=== PATIENT | female | born 1950 | race Caucasian/White ===

== ENCOUNTER → 2018-08-29 12:12 | Outpatient (CLI) | payer MEDICARE, MEDICAID, SELFPAY ==
--- NOTE | 2018-08-29 | DI.MG.S_ITS ---
BILATERAL DIGITAL SCREENING MAMMOGRAM 3D/2D WITH CAD: 08/29/2018 CLINICAL: Routine screening. Comparison is made to exams dated: 07/18/2017 mammogram, 03/25/2016 mammogram, and 01/31/2014 mammogram - [facility]. There are scattered fibroglandular elements in both breasts. Current study was also evaluated with a Computer Aided Detection (CAD) system. No significant masses, calcifications, or other findings are seen in either breast. There has been no significant interval change. IMPRESSION: NEGATIVE There is no mammographic evidence of malignancy. A 1 year screening mammogram is recommended. This exam was interpreted at Station ID: [id number]. NOTE: For mammograms, a report in lay terms will be sent to the patient. Approximately 15% of breast malignancies will not be visualized mammographically. In the management of a palpable breast mass, a negative mammogram must not discourage biopsy of a clinically suspicious lesion. Electronically Signed By: Essie carrillo/ismael:08/29/2018 16:31:49 letter sent: Normal Exam ACR BI-RADS Category 1: Negative 3341F
== END ==
PROVIDERS: Family Provider Nurse Practitioner Family; PCP Family Medicine; Visit Provider Family Medicine
DX: Z12.31 Encounter for screening mammogram for malignant neoplasm of breast (principal)
CPT/HCPCS: 77063; 77067

== ENCOUNTER → 2020-03-31 17:23 | Outpatient (CLI) | payer MEDICARE, MEDICAID, SELFPAY ==
--- NOTE | 2020-03-31 | DI.MG.S_ITS ---
BILATERAL DIGITAL SCREENING MAMMOGRAM 3D/2D WITH CAD: 03/31/2020 CLINICAL: Routine screening. Comparison is made to exams dated: 08/29/2018 mammogram, 07/18/2017 mammogram, and 03/25/2016 mammogram - [facility]. There are scattered fibroglandular elements in both breasts. Current study was also evaluated with a Computer Aided Detection (CAD) system. There are grouped punctate calcifications in the right breast at 11 o'clock middle depth 4.8 cm from the nipple. This was not seen on the prior mammogram. There is a 6 mm area of grouped punctate calcifications in the left breast at 2 o'clock middle depth 5.5 cm from the nipple. This was not seen on the prior mammogram. No other significant masses or calcifications are seen in either breast. IMPRESSION: INCOMPLETE: NEEDS ADDITIONAL IMAGING EVALUATION The grouped punctate calcifications in the right breast at 11 o'clock middle depth are indeterminate. Magnification views as well as a diagnostic mammogram are recommended. The 6 mm area of grouped punctate calcifications in the left breast at 2 o'clock middle depth are indeterminate. Magnification views as well as a diagnostic mammogram are recommended. This exam was interpreted at Station ID: [id number]. NOTE: For mammograms, a report in lay terms will be sent to the patient. Approximately 15% of breast malignancies will not be visualized mammographically. In the management of a palpable breast mass, a negative mammogram must not discourage biopsy of a clinically suspicious lesion. Electronically Signed By: Malcolm Richardson M.D. ar/:04/01/2020 08:40:38 letter sent: Additional Imaging Needed ACR BI-RADS Category 0: Incomplete 3340F
== END ==
PROVIDERS: Family Provider Nurse Practitioner Family; PCP Student in an Organized Health Care Education/Training Program; Referring Provider Student in an Organized Health Care Education/Training Program; Visit Provider Student in an Organized Health Care Education/Training Program
DX: Z12.31 Encounter for screening mammogram for malignant neoplasm of breast (principal)
CPT/HCPCS: 77063; 77067

== ENCOUNTER → 2020-04-23 09:26 | Outpatient (CLI) | payer MEDICARE, MEDICAID, SELFPAY ==
--- NOTE | 2020-04-23 | DI.MG.S_ITS ---
BILATERAL DIGITAL DIAGNOSTIC MAMMOGRAM 3D/2D WITH ADDITIONAL VIEWS: 04/23/2020 CLINICAL: Additional evaluation requested from prior study. Comparison is made to exams dated: 03/31/2020 mammogram, 08/29/2018 mammogram, and 07/18/2017 mammogram - [facility]. There are scattered fibroglandular elements in both breasts. There are grouped punctate calcifications in the right breast at 11 o'clock middle depth 4.8 cm from the nipple. These are less prominent and was not seen on the prior mammogram. There is a 6 mm area of grouped punctate calcifications in the left breast at 2 o'clock middle depth 5.5 cm from the nipple. These are less prominent and was not seen on the prior mammogram. No other significant masses or calcifications are seen in either breast. IMPRESSION: PROBABLY BENIGN 1) The grouped punctate calcifications in the right breast at 11 o'clock middle depth are probably benign. A follow-up mammogram in 6 months is recommended. 2) The 6 mm area of grouped punctate calcifications in the left breast at 2 o'clock middle depth are probably benign. A follow-up mammogram in 6 months is recommended. Exam findings conveyed to the patient. This exam was interpreted at Station ID: [id number]. NOTE: For mammograms, a report in lay terms will be sent to the patient. Approximately 15% of breast malignancies will not be visualized mammographically. In the management of a palpable breast mass, a negative mammogram must not discourage biopsy of a clinically suspicious lesion. Electronically Signed By: Dinesh Willis M.D. slc/:04/23/2020 10:55:44 letter sent: Followup Recommended ACR BI-RADS Category 3: Probably benign 3343F
== END ==
PROVIDERS: Family Provider Nurse Practitioner Family; PCP Student in an Organized Health Care Education/Training Program; Referring Provider Student in an Organized Health Care Education/Training Program; Visit Provider Student in an Organized Health Care Education/Training Program
DX: R92.8 Other abnormal and inconclusive findings on diagnostic imaging of breast (principal); R92.1 Mammographic calcification found on diagnostic imaging of breast
CPT/HCPCS: 77066; G0279

== ENCOUNTER → 2020-12-04 09:41 | Outpatient (CLI) | payer MEDICARE, MEDICAID, SELFPAY ==
--- NOTE | 2020-12-04 09:44 | DI.MG.S_ITS ---
BILATERAL DIGITAL DIAGNOSTIC MAMMOGRAM 3D/2D SHORT-TERM FOLLOW-UP: 12/04/2020 CLINICAL: Short term follow up for bilateral breasts. Comparison is made to exams dated: 04/23/2020 mammogram, 03/31/2020 mammogram, and 08/29/2018 mammogram - [facility]. There are scattered fibroglandular elements in both breasts. There are grouped punctate calcifications in the right breast at 11 o'clock middle depth 4.8 cm from the nipple. These are not significantly changed but overall less prominent compared to the prior screening mammogram. There is a 6 mm area of grouped punctate calcifications in the left breast at 2 o'clock middle depth 5.5 cm from the nipple. These are not significantly changed but overall less prominent compared to the prior screening mammogram. No other significant masses or calcifications are seen in either breast. IMPRESSION: PROBABLY BENIGN The grouped punctate calcifications in the right breast at 11 o'clock middle depth are probably benign. The 6 mm area of grouped punctate calcifications in the left breast at 2 o'clock middle depth are probably benign. A follow-up bilateral mammogram in 6 months is recommended to demonstrate stability. Findings and recommendations were conveyed to the patient during today's evaluation. This exam was interpreted at Station ID: [id number]. NOTE: For mammograms, a report in lay terms will be sent to the patient. Approximately 15% of breast malignancies will not be visualized mammographically. In the management of a palpable breast mass, a negative mammogram must not discourage biopsy of a clinically suspicious lesion. Electronically Signed By: Eugene Vázquez M.D. aty/:12/04/2020 10:39:29 letter sent: Followup Recommended ACR BI-RADS Category 3: Probably benign 3343F
== END ==
PROVIDERS: Family Provider Nurse Practitioner Family; PCP Student in an Organized Health Care Education/Training Program; Referring Provider Student in an Organized Health Care Education/Training Program; Visit Provider Student in an Organized Health Care Education/Training Program
DX: R92.8 Other abnormal and inconclusive findings on diagnostic imaging of breast (principal); R92.1 Mammographic calcification found on diagnostic imaging of breast
CPT/HCPCS: 77066; G0279

== ENCOUNTER → 2021-04-07 15:15 | Outpatient (CLI) | payer MEDICARE, MEDICAID, SELFPAY ==
--- NOTE | 2021-04-07 15:21 | DI.RAD.S_ITS ---
PROCEDURE: XR DEXA AXIAL SKELETON INDICATIONS: ASYMPTOMATIC MENOPAUSAL STATE COMPARISON: None. FINDINGS: This blank DEXA report has been sent in error by the PACS system. The correct and complete report will be forthcoming in 1-2 days. Thank you for your patience and understanding. Dictated by: Judi Anderson MD, PhD on 04/07/2021 at 16:51 Approved by: Judi Anderson MD, PhD on 04/07/2021 at 16:51
== END ==
PROVIDERS: Family Provider Nurse Practitioner Family; PCP Student in an Organized Health Care Education/Training Program; Referring Provider Student in an Organized Health Care Education/Training Program; Visit Provider Student in an Organized Health Care Education/Training Program
DX: M85.88 Other specified disorders of bone density and structure, other site (principal); Z78.0 Asymptomatic menopausal state; Z82.62 Family history of osteoporosis; Z87.891 Personal history of nicotine dependence
CPT/HCPCS: 77080

== ENCOUNTER → 2021-06-07 09:48 | Outpatient (CLI) | payer MEDICARE, MEDICAID, SELFPAY ==
--- NOTE | 2021-06-07 | DI.MG.S_ITS ---
BILATERAL DIGITAL DIAGNOSTIC MAMMOGRAM 3D/2D: 06/07/2021 CLINICAL: Patient returns for 6 month follow up on bilaeral breast calcifications. Comparison is made to exams dated: 12/04/2020 mammogram, 04/23/2020 mammogram, and 03/31/2020 mammogram - [facility]. There are scattered fibroglandular elements in both breasts. There are stable grouped fine calcifications in the right breast at 11 o'clock anterior depth. There are stable grouped fine calcifications in the left breast at 2 o'clock middle depth. No other significant masses or calcifications are seen in either breast. IMPRESSION: PROBABLY BENIGN The stable grouped fine calcifications in the right breast at 11 o'clock anterior depth are probably benign. The stable grouped fine calcifications in the left breast at 2 o'clock middle depth are probably benign. A follow-up mammogram in 12 months is recommended to demonstrate 2 year stability. This exam was interpreted at Station ID: [id number]. NOTE: For mammograms, a report in lay terms will be sent to the patient. Approximately 15% of breast malignancies will not be visualized mammographically. In the management of a palpable breast mass, a negative mammogram must not discourage biopsy of a clinically suspicious lesion. Electronically Signed By: Edin Rain M.D. ddsondra/:06/07/2021 10:54:10 letter sent: Followup Recommended ACR BI-RADS Category 3: Probably benign 3343F
== END ==
PROVIDERS: Family Provider Nurse Practitioner Family; PCP Student in an Organized Health Care Education/Training Program; Referring Provider Student in an Organized Health Care Education/Training Program; Visit Provider Student in an Organized Health Care Education/Training Program
DX: R92.8 Other abnormal and inconclusive findings on diagnostic imaging of breast (principal); R92.1 Mammographic calcification found on diagnostic imaging of breast
CPT/HCPCS: 77066; G0279

== ENCOUNTER → 2021-12-09 13:16 | Outpatient (CLI) | payer MEDICARE, MEDICAID, SELFPAY ==
--- NOTE | 2021-12-09 13:22 | DI.RAD.S_ITS ---
PROCEDURE: XR CHEST 2V INDICATIONS: CHEST TIGHTNESS TECHNIQUE: 2 views of the chest were acquired. COMPARISON: [facility], , CHEST 2 VIEW, 03/03/2016, 11:26. FINDINGS: Surgical changes and devices: None. Lungs and pleura: Lungs are clear. No pleural effusions or pneumothorax. Mediastinum: Mediastinal contours are normal. Heart size is normal. Bones and chest wall: No suspicious bony abnormalities. Soft tissues appear unremarkable. IMPRESSION: No acute pulmonary process. Dictated by: Candida Goss M.D. on 12/14/2021 at 13:02 Approved by: Candida Goss M.D. on 12/14/2021 at 13:02
[2021-12-09 15:12] LABS: Troponin I < 0.012 ng/mL (0.01-0.034)
== END ==
PROVIDERS: Family Provider Nurse Practitioner Family; PCP Student in an Organized Health Care Education/Training Program; Referring Provider Student in an Organized Health Care Education/Training Program; Visit Provider Student in an Organized Health Care Education/Training Program
DX: R07.89 Other chest pain (principal); I45.10 Unspecified right bundle-branch block
CPT/HCPCS: 71046; 84484

== ENCOUNTER → 2021-12-10 16:28 | Outpatient (CLI) | payer MEDICARE, MEDICAID, SELFPAY ==
[2021-12-10 17:14] LABS: D Dimer 311 ng/mL (<230)
== END ==
PROVIDERS: Family Provider Nurse Practitioner Family; PCP Student in an Organized Health Care Education/Training Program; Referring Provider Student in an Organized Health Care Education/Training Program; Visit Provider Student in an Organized Health Care Education/Training Program
DX: I45.19 Other right bundle-branch block (principal); R07.89 Other chest pain
CPT/HCPCS: 36415; 85379

== ENCOUNTER → 2022-01-27 09:09 | Outpatient (CLI) | payer MEDICARE, MEDICAID, SELFPAY ==
--- NOTE | 2022-01-27 | DI.ECHO.S_ITS ---
[facility]---------+ [facility] +---------+ : : [address] : : : : [id number] : : : : Phone: [phone]+ Echocardiogram Report + + :Name: DRU RONDON Study Date: 01/27/2022 Height: 65 in : :[facility] ReadingLocation: Weight: 200 lb : : Gender: Female BSA: 2.0 m2 : :: 1950 Age: 72 yrs BP: 163/97 mmHg: :Reason For Study: RBBB : :Ordering Physician: LEONOR, : :RENE Performed By: Kal Benitse : :Referring: RENE GALVEZ : + + Interpretation Summary The left ventricle is normal in size and wall thickness. Left ventricular systolic function is normal. The ejection fraction is estimated to be 60-65%. There are no focal wall motion abnormalities. Diastolic parameters suggest a relaxation abnormality of the left ventricle, consistent with probable normal filling pressures. The right ventricle is normal in size and function. Pulmonary artery pressures cannot be estimated because of the lack of a measurable TR jet velocity. Both atria are normal in size. There is no significant valvular heart disease. The aortic root is normal size. Procedure: A two-dimensional transthoracic echocardiogram with color flow and Doppler was performed. The study quality was technically adequate. There is no prior echocardiogram noted for this patient. Left Ventricle: The left ventricle is normal in size and wall thickness. Left ventricular systolic function is normal. The ejection fraction is estimated to be 60-65%. There are no focal wall motion abnormalities. Diastolic parameters suggest a relaxation abnormality of the left ventricle, consistent with probable normal filling pressures. Right Ventricle: The right ventricle is normal in size and function. Atria: Both atria are normal in size. The interatrial septum grossly appears intact with no obvious evidence for an atrial septal defect. Mitral Valve: The mitral valve is normal in structure and function. There is no mitral regurgitation noted. Aortic Valve: The aortic valve is normal in structure and function. No aortic regurgitation is present. Tricuspid Valve: The tricuspid valve is normal in structure and function. No tricuspid regurgitation. Pulmonary artery pressures cannot be estimated because of the lack of a measurable TR jet velocity. Pulmonic Valve: The pulmonic valve is not well visualized. There is no significant valvular heart disease. Great Vessels: The aortic root is normal size. The dimensions of the ascending aorta are normal. The IVC is of normal diameter and collapses greater than 50% with a sniff. This suggests a low right atrial pressure of 3 mm Hg. Pericardium/ Pleura There is no pericardial effusion. There is no pleural effusion. MMode/2D Measurements & Calculations LVIDd: 4.4 cm LVOT diam: 2.2 cm LVIDs: 2.9 cm Ao root diam: 2.9 cm FS: 34.1 % asc Aorta Diam: 3.1 cm IVSd: 0.90 cm LVPWd: 1.0 cm LV alvarado. diameter/BSA (cm/m^2): 2.2 LV sys. diameter/BSA (cm/m^2): 1.5 LA dimension: 2.6 cm RA long axis: 4.4 cm LA A2 area: 13.4 cm2 LA A4 area: 9.3 cm2 LA length (vol): 4.8 cm LA vol: 21.9 ml LA vol index: 11.1 ml/m2 TAPSE_phl: 2.1 cm Doppler Measurements & Calculations Ao V2 max: 126.0 cm/sec LVOT Max Jakob: 118.0 cm/sec Ao V2 mean: 88.3 cm/sec LV V1 max P.6 mmHg Ao max P.0 mmHg LV V1 VTI: 23.7 cm Ao mean P.0 mmHg KIMBER(I,D): 3.4 cm2 Ao V2 VTI: 26.3 cm KIMBER(V,D): 3.6 cm2 sev ratio: 0.90 KIMBER indexed to BSA (cm^2/m^2): 1.7 MV E max jakob: 60.8 cm/sec SV(LVOT): 90.1 ml MV A max jakob: 90.4 cm/sec MV E/A: 0.67 Med Peak E' Jakob: 6.3 cm/sec E/E' med: 9.7 Lat Peak E' Jakob: 10.3 cm/sec E/E' lat: 5.9 E/e' average: 7.8 MV dec time: 0.38 sec AV VR_phl: 0.94 MV P1/2t-pr_phl: 111.0 msec KIMBERGIANCARLO)/BSA_phl: 1.7 Reading Physician:03:08 PM
== END ==
PROVIDERS: Family Provider Nurse Practitioner Family; PCP Student in an Organized Health Care Education/Training Program; Referring Provider Student in an Organized Health Care Education/Training Program; Visit Provider Student in an Organized Health Care Education/Training Program
DX: R07.89 Other chest pain (principal); I45.19 Other right bundle-branch block
CPT/HCPCS: 93306

== ENCOUNTER → 2023-03-31 08:55 | Outpatient (CLI) | payer MEDICARE, MEDICAID, SELFPAY ==
--- NOTE | 2023-03-31 08:59 | DI.MG.S_ITS ---
BILATERAL DIGITAL DIAGNOSTIC MAMMOGRAM 3D/2D: 03/31/2023 CLINICAL: Patient returns for a 12 month follow up of bilateral breasts. Comparison is made to exams dated: 06/07/2021 mammogram, 12/04/2020 mammogram, 04/23/2020 mammogram, 03/31/2020 mammogram, and 08/29/2018 mammogram - [facility]. There are scattered areas of fibroglandular density in both breasts (category b / 25%-50% glandular tissue). There are stable benign grouped fine calcifications in the right breast at 11 o'clock anterior depth. These calcifications have been stable dating back to the prior exam from 04/23/2020, and are therefore considered benign. There are stable benign grouped fine calcifications in the left breast at 2 o'clock middle depth. These calcifications have been stable dating back to the prior exam from 04/23/2020, and are therefore considered benign. No other significant masses or calcifications are seen in either breast. IMPRESSION: BENIGN There is no mammographic evidence of malignancy. Return to annual mammogram screening schedule is recommended. Based on the Tyrer Cuzick model (a risk assessment model) the patient's lifetime risk is 4.7% and her 10 year risk is 3.9%. According to the ACR, ACS, and NCCN guidelines, an annual breast MRI exam along with mammogram is recommended if the patient's lifetime risk is 20% or greater. This exam was interpreted at Station ID: [id number]. NOTE: For mammograms, a report in lay terms will be sent to the patient. Approximately 15% of breast malignancies will not be visualized mammographically. In the management of a palpable breast mass, a negative mammogram must not discourage biopsy of a clinically suspicious lesion. Electronically Signed By: Malcolm saba/ismael:03/31/2023 12:39:04 letter sent: Normal Exam ACR BI-RADS Category 2: Benign Finding(s) 3342F
== END ==
PROVIDERS: Family Provider Nurse Practitioner Family; PCP Nurse Practitioner; Referring Provider Nurse Practitioner; Visit Provider Nurse Practitioner
DX: R92.8 Other abnormal and inconclusive findings on diagnostic imaging of breast (principal); R92.1 Mammographic calcification found on diagnostic imaging of breast
CPT/HCPCS: 77066; G0279

== ENCOUNTER → 2024-05-30 17:23 | Outpatient (CLI) | payer MEDICARE, MEDICAID, SELFPAY ==
--- NOTE | 2024-05-30 17:23 | DI.MG.S_ITS ---
BILATERAL DIGITAL SCREENING MAMMOGRAM 3D/2D WITH CAD: 05/30/2024 CLINICAL: Routine screening. Comparison is made to exams dated: 03/31/2023 mammogram, 12/04/2020 mammogram, 04/23/2020 mammogram, 08/29/2018 mammogram, 07/18/2017 mammogram, and 06/07/2021 mammogram - [facility]. There are scattered areas of fibroglandular density (category b / 25%-50% glandular tissue). Current study was also evaluated with a Computer Aided Detection (CAD) system. There are benign post operative findings in the right breast. No significant masses, calcifications, or other findings are seen in either breast. There has been no significant interval change. IMPRESSION: BENIGN There is no mammographic evidence of malignancy. A 1 year screening mammogram is recommended. Based on the Tyrer Cuzick model (a risk assessment model) the patient's lifetime risk is 4.4% and her 10 year risk is 4.0%. According to the ACR, ACS, and NCCN guidelines, an annual breast MRI exam along with mammogram is recommended if the patient's lifetime risk is 20% or greater. This exam was interpreted at Station ID: [id number]. NOTE: For mammograms, a report in lay terms will be sent to the patient. Approximately 15% of breast malignancies will not be visualized mammographically. In the management of a palpable breast mass, a negative mammogram must not discourage biopsy of a clinically suspicious lesion. Electronically Signed By: Dinesh rao/ismael:05/31/2024 12:44:22 letter sent: Normal Exam ACR BI-RADS Category 2: Benign
== END ==
LOC: MAMMO 17:23
PROVIDERS: PCP Nurse Practitioner; Referring Provider Nurse Practitioner; Visit Provider Nurse Practitioner
DX: Z12.31 Encounter for screening mammogram for malignant neoplasm of breast (principal)
CPT/HCPCS: 77063; 77067